=== PATIENT | male | born 1950 | race Caucasian/White ===

== ENCOUNTER → 2019-07-11 09:25 | Outpatient (BNVA) | payer MEDICARE, OTHER, SELFPAY | PROVIDERS: Family Provider Nurse Practitioner; PCP Nurse Practitioner; Visit Provider Nurse Practitioner | DX: Z11.59 Encounter for screening for other viral diseases (principal); Z13.6 Encounter for screening for cardiovascular disorders | CPT/HCPCS: 80053; 80061; 81003; 86705; 86706; 86803; 87340 ==

== ENCOUNTER → 2019-07-19 13:34 | Outpatient (BNVA) | payer MEDICARE, OTHER, SELFPAY | PROVIDERS: Family Provider Nurse Practitioner; PCP Nurse Practitioner; Visit Provider Nurse Practitioner Family | DX: R19.7 Diarrhea, unspecified (principal); H81.10 Benign paroxysmal vertigo, unspecified ear | CPT/HCPCS: 80053; 85025 ==

== ENCOUNTER → 2019-07-20 09:56 | Outpatient (BNVA) | payer MEDICARE, OTHER, SELFPAY | PROVIDERS: Family Provider Nurse Practitioner; PCP Nurse Practitioner; Visit Provider Nurse Practitioner Family | DX: R19.7 Diarrhea, unspecified (principal) | CPT/HCPCS: 87505 ==

== ENCOUNTER 2019-07-24 10:38 | Outpatient (CLI) | payer MEDICARE, OTHER, SELFPAY ==
--- NOTE | 2019-07-24 11:00 | US_ITS ---
WS: [id number] RENAL ULTRASOUND REASON FOR EXAM: RENAL [email or web address] 07/25/19@8:15AM. APPT TO FOLLOW TECHNIQUE: Grayscale and Doppler ultrasound examination of the kidneys. FINDINGS: Right kidney: Right kidney measures 7.6 cm x 4.5 cm x 4.9 cm. Renal atrophy similar to the previous e xam exposed February 02, 2016. Small cyst is unchanged also on the right kidney. Measures 2.23 x 1.5 4 x 2.10 cm. Left kidney: Left kidney measures 11.5 cm x 5.3 cm x 5.8 cm. The size and configuration unchanged sin ce previous exam. No hydronephrosis no stones. Cortex measured 1.98 cm. The aorta is normal measured 1.98 cm. The bladder is contracted but appears to show a nodular density in the wall. US/US renal BI* [id number] IMPRESSION: Comparisons were made to previous exam exposed 02/01/2017 Atrophic changes of the right kidney are again seen unchanged A small cyst of the right kidney is seen. The left kidney is normal. The bladder is contracted but appears to show a nodule along the wall of the bl adder.
== END 2019-07-24 10:39 | disposition home or self-care (01) ==
LOC: US 10:39
PROVIDERS: Family Provider Nurse Practitioner; PCP Nurse Practitioner; Visit Provider Urology
DX: N28.1 Cyst of kidney, acquired (principal); R33.9 Retention of urine, unspecified; N26.1 Atrophy of kidney (terminal)
CPT/HCPCS: 76770

== ENCOUNTER 2019-07-25 | Outpatient (CLI) | payer MEDICARE, OTHER, SELFPAY | END 2019-07-25 23:00 | disposition home or self-care (01) | LOC: RAD 01-07 13:46 | PROVIDERS: Family Provider Nurse Practitioner; PCP Nurse Practitioner; Visit Provider Nurse Practitioner Family | DX: R31.29 Other microscopic hematuria (principal) | CPT/HCPCS: 81001 ==

== ENCOUNTER → 2019-07-26 08:53 | Outpatient (BNVA) | payer MEDICARE, OTHER, SELFPAY | PROVIDERS: Family Provider Nurse Practitioner; PCP Nurse Practitioner; Visit Provider Nurse Practitioner Family | DX: A09 Infectious gastroenteritis and colitis, unspecified (principal); B96.23 Unspecified Shiga toxin-producing Escherichia coli [E. coli] [STEC] as the cause of diseases classified elsewhere; R42 Dizziness and giddiness; D69.6 Thrombocytopenia, unspecified | CPT/HCPCS: 80053; 83615; 85025 ==

== ENCOUNTER → 2020-01-29 08:33 | Outpatient (BNVA) | payer MEDICARE, OTHER, SELFPAY | PROVIDERS: Family Provider Nurse Practitioner; PCP Nurse Practitioner; Visit Provider Urology | DX: N31.9 Neuromuscular dysfunction of bladder, unspecified (principal); N26.1 Atrophy of kidney (terminal) | CPT/HCPCS: 81001 ==

== ENCOUNTER 2020-07-28 07:40 | Outpatient (CLI) | payer MEDICARE, OTHER, SELFPAY ==
--- NOTE | 2020-07-28 08:00 | US_ITS ---
NOTE: Report was unsigned for reason: Order was edited. Original Signature date and time was: 07/28/20 13:09 WS: [id number] ULTRASOUND RENAL TECHNIQUE: Ultrasound examination of both kidneys. CLINICAL INFORMATION: RENAL ATROPHY COMPARISON: July 24, 2019 FINDINGS: RIGHT: Atrophic right kidney Right renal cyst measuring 1.8 x 1.1 cm Echogenicity: Normal. Cortical thickness: cm; Normal. Hydronephrosis: None. Perinephric fluid: None. Right kidney measures: 9.2 cm x 5.0 cm x 5.1 cm. LEFT: Left kidney is normal in size and appearance. Echogenicity: Normal. Cortical thickness: cm; Normal. Hydronephrosis: None. Perinephric fluid: None. Left kidney measures: 12.7 cm x 5.7 cm x 5.5 cm. Normal visualized aorta. Poor bladder emptying with postvoid residual measured 321 cc [facility] US/US renal BI* [id number] IMPRESSION: 1. Right renal cortical atrophy. 2. No hydronephrosis in either kidney. 3. Postvoid residual measuring 321 cc
== END 2020-07-28 07:41 | disposition home or self-care (01) ==
LOC: RAD 07:44
PROVIDERS: PCP Nurse Practitioner; Visit Provider Urology
DX: N26.1 Atrophy of kidney (terminal) (principal)
CPT/HCPCS: 76770

== ENCOUNTER → 2021-01-15 11:22 | Outpatient (BNVA) | payer MEDICARE, OTHER, SELFPAY | PROVIDERS: PCP Nurse Practitioner; Visit Provider Nurse Practitioner | DX: R50.9 Fever, unspecified (principal) | CPT/HCPCS: 71046; 80053; 85025 ==

== ENCOUNTER → 2021-01-28 09:08 | Outpatient (BNVA) | payer MEDICARE, OTHER, SELFPAY | PROVIDERS: PCP Nurse Practitioner; Visit Provider Urology | DX: N31.9 Neuromuscular dysfunction of bladder, unspecified (principal); Z87.442 Personal history of urinary calculi; Z87.440 Personal history of urinary (tract) infections; N26.1 Atrophy of kidney (terminal) | CPT/HCPCS: 81003 ==

== ENCOUNTER → 2021-06-29 15:25 | Outpatient (BNVA) | payer MEDICARE, OTHER, SELFPAY | PROVIDERS: PCP Nurse Practitioner; Visit Provider Nurse Practitioner | DX: R20.0 Anesthesia of skin (principal); R20.2 Paresthesia of skin; M25.551 Pain in right hip; M16.11 Unilateral primary osteoarthritis, right hip | CPT/HCPCS: 73502 ==

== ENCOUNTER → 2021-09-30 11:26 | Outpatient (BNVA) | payer MEDICARE, OTHER, SELFPAY | PROVIDERS: PCP Nurse Practitioner; Visit Provider Nurse Practitioner | DX: I48.91 Unspecified atrial fibrillation (principal) | CPT/HCPCS: 80053; 84443; 85025 ==

== ENCOUNTER → 2021-10-30 08:30 | Outpatient (BNVA) | payer MEDICARE, OTHER, SELFPAY | PROVIDERS: PCP Nurse Practitioner; Visit Provider Nurse Practitioner | DX: M51.37 Other intervertebral disc degeneration, lumbosacral region (principal); I48.91 Unspecified atrial fibrillation; N40.0 Benign prostatic hyperplasia without lower urinary tract symptoms; Z12.5 Encounter for screening for malignant neoplasm of prostate | CPT/HCPCS: G0103 ==

== ENCOUNTER 2021-11-04 06:00 | Outpatient (RCR) | payer MEDICARE, OTHER, SELFPAY | END 2021-11-19 23:59 | disposition home or self-care (01) | LOC: TPT 06:00 | PROVIDERS: PCP Nurse Practitioner; Referring Provider Nurse Practitioner; Visit Provider Nurse Practitioner | DX: M51.36 Other intervertebral disc degeneration, lumbar region (principal) | CPT/HCPCS: 97110; 97161 ==

== ENCOUNTER 2021-11-20 06:00 | Outpatient (RCR) | payer MEDICARE, OTHER, SELFPAY | END 2021-12-20 23:59 | disposition home or self-care (01) | LOC: TPT 06:00 | PROVIDERS: PCP Nurse Practitioner; Referring Provider Nurse Practitioner; Visit Provider Nurse Practitioner | DX: M51.37 Other intervertebral disc degeneration, lumbosacral region (principal) | CPT/HCPCS: 97110 ==

== ENCOUNTER 2022-01-28 09:20 | Outpatient (CLI) | payer MEDICARE, OTHER, SELFPAY ==
--- NOTE | 2022-01-28 09:46 | XR_ITS ---
WS: [id number] KUB, AP view, 01/28/2022 Clinical Data: Z87.442 - Personal history of urinary calculi Comparison: None. Findings: No abnormal intraabdominal masses are seen. There is no dilatated small bowel or evidence of obstruct ion. There are faint right upper quadrant calcifications representing gallstones. There is vertebroplasty cement in L2. There is air in the small bowel in the upper abdomen which is not dilated. There is a m oderate amount of fecal material throughout the colon. XR/XR KUB [id number] Impression: Moderate generalized ileus.
== END 2022-01-28 09:21 | disposition home or self-care (01) ==
LOC: RAD 09:21
PROVIDERS: PCP Nurse Practitioner; Visit Provider Urology
DX: N31.9 Neuromuscular dysfunction of bladder, unspecified (principal); N26.1 Atrophy of kidney (terminal); Z87.440 Personal history of urinary (tract) infections; Z87.442 Personal history of urinary calculi
CPT/HCPCS: 51798; 74018; 81003; 99213

== ENCOUNTER → 2022-03-11 09:50 | Outpatient (BNVA) | payer MEDICARE, OTHER, SELFPAY | PROVIDERS: PCP Nurse Practitioner Family; Visit Provider Nurse Practitioner Family | DX: M25.552 Pain in left hip (principal); Z13.6 Encounter for screening for cardiovascular disorders; Z12.5 Encounter for screening for malignant neoplasm of prostate | CPT/HCPCS: 73502; 80053; 80061; G0103 ==

== ENCOUNTER 2022-07-29 08:12 | Outpatient (CLI) | payer MEDICARE, OTHER, SELFPAY ==
--- NOTE | 2022-07-29 08:45 | US_ITS ---
WS: [id number] RENAL ULTRASOUND HISTORY: Kidney Stone COMPARISON: 07/28/2020 TECHNIQUE: 2-D and color Doppler imaging of the kidney submitted. Right kidney: 9.3 cm x 5.0 cm x 4.0 cm. Low normal size kidney. Increased echogenicity. Focal area of marked cortical thinning in the central kidney. No hydronephrosis or solid mass identified. Left kidney: 12.0 cm x 5.9 cm x 4.9 cm. Normal size with mild increased echogenicity. No cortical thinning or scarring. No obstruction. Aorta: Normal. Urinary Bladder: Well-distended bladder. No filling defects. Mildly heterogeneous prostate measures 4.7 x 5.2 x 3.5 cm. US/US renal BI* [id number] IMPRESSION: 1. Low normal size RIGHT kidney with cortical thinning and scarring and eviden ce for chronic medical renal disease. The focal scar in the mid kidney with los s of cortex is new since 2020. 2. Normal LEFT kidney.
== END 2022-07-29 08:13 | disposition home or self-care (01) ==
LOC: RAD 08:16
PROVIDERS: PCP Nurse Practitioner Family; Visit Provider Urology
DX: Z87.442 Personal history of urinary calculi (principal); Z87.440 Personal history of urinary (tract) infections; N31.9 Neuromuscular dysfunction of bladder, unspecified; N26.1 Atrophy of kidney (terminal)
CPT/HCPCS: 51798; 76770; 81003; 99213

== ENCOUNTER → 2022-12-01 13:50 | Outpatient (BNVA) | payer MEDICARE, OTHER, SELFPAY | PROVIDERS: PCP Nurse Practitioner Family; Referring Provider Nurse Practitioner Family; Visit Provider Dermatology | DX: L57.0 Actinic keratosis (principal); B35.6 Tinea cruris; L81.4 Other melanin hyperpigmentation; D69.2 Other nonthrombocytopenic purpura | CPT/HCPCS: 99204 ==

== ENCOUNTER → 2022-12-23 10:18 | Outpatient (BNVA) | payer MEDICARE, OTHER, SELFPAY | PROVIDERS: PCP Nurse Practitioner Family; Visit Provider Nurse Practitioner Family | DX: I48.91 Unspecified atrial fibrillation (principal); N40.0 Benign prostatic hyperplasia without lower urinary tract symptoms; M51.37 Other intervertebral disc degeneration, lumbosacral region | CPT/HCPCS: 80053; 80061 ==

== ENCOUNTER 2023-04-22 14:15 | Outpatient (CLI) | payer MEDICARE, OTHER, SELFPAY ==
--- NOTE | 2023-04-22 14:21 | XR_ITS ---
WS: [id number] Left hip, 2 views, 04/22/2023 Clinical Data: left hip pain Comparison: Left hip, 03/11/2022 Findings: No fractures or dislocations are seen. The left hip shows no erosion, sclerosis, narrowing or fragmen tation of the left femoral head. There is a small acetabular lip. The soft tissues are not remarkable . The adjacent pelvis is normal. Impression: Minimal osteoarthritis of left hip. Tonnis classification: grade 1: sclerosis of femoral head and acetabulum or slight joint space narrow ing or slight lipping at joint margins
--- NOTE | 2023-04-22 14:21 | XR_ITS ---
WS: [id number] Right shoulder, 2 views Clinical Data: right shoulder pain Comparison: None. Findings: No fractures or dislocations are seen. The AC joint is normal. The adjacent right clavicle, right sca pula and ribs are normal. The soft tissues are unremarkable. Impression: Negative right shoulder.
== END 2023-04-22 14:16 | disposition home or self-care (01) ==
LOC: RAD 14:18
PROVIDERS: PCP Nurse Practitioner Family; Visit Provider Nurse Practitioner Family
DX: M25.511 Pain in right shoulder; M16.12 Unilateral primary osteoarthritis, left hip
CPT/HCPCS: 73030; 73502

== ENCOUNTER → 2023-09-13 10:03 | Outpatient (BNVA) | payer MEDICARE, OTHER, SELFPAY | PROVIDERS: PCP Nurse Practitioner Family; Visit Provider Nurse Practitioner Family | DX: I48.91 Unspecified atrial fibrillation (principal); Z12.5 Encounter for screening for malignant neoplasm of prostate; N40.0 Benign prostatic hyperplasia without lower urinary tract symptoms; K21.9 Gastro-esophageal reflux disease without esophagitis | CPT/HCPCS: 80053; 84443; 85025; G0103 ==

== ENCOUNTER 2023-12-13 09:47 | Outpatient (CLI) | payer MEDICARE, OTHER, SELFPAY ==
--- NOTE | 2023-12-13 09:50 | CT_ITS ---
WS: [id number] CT CHEST ANGIOGRAPHY WITH REFORMATS HISTORY: PAROXYSMAL ATRIAL FIBRILLATION TECHNIQUE: Contiguous axial images are obtained through the chest during arterial injection of intrav enous contrast. Images are reconstructed to evaluate the pulmonary arteries. MIP imaging also reviewe d. All CT scans at [facility] use at least one of these dose optimization techniques: automat ed exposure control; mA and/or kV adjustment per patient size (includes targeted exams where dose is matched to clinical indication); or iterative reconstruction. CONTRAST: Omnipaque 350; 100 mL IV. DLP: 358.18 mGy.cm COMPARISON: None available. Good contrast opacification of the pulmonary artery. Normal size pulmonary artery. No pulmonary embol ism is identified centrally through the lobar and majority of the segmental branches. Mild atheroscle rosis aorta. No aneurysmal dilatation of the aorta. Moderate enlargement of the LEFT ventricle. No RI GHT heart strain. No pericardial or pleural effusions. No mediastinal or hilar adenopathy. Mild dilatation of the LEFT hemidiaphragm with compressive atelectasis. 4 mm noncalcified nodule RIGH T upper lobe, image 19 of series 5. Mild tricuspid regurgitation into the hepatic veins. Cholelithiasis without acute cholecystitis. Visu alized adrenal glands are normal. Atherosclerotic plaque throughout the splenic artery. There is a we ll-circumscribed mass incompletely visualized with a maximum diameter of 2.1 cm in the upper LEFT abd omen just posterior to the greater curvature of the stomach and inseparable from the pancreas. This m ass was also present on the prior CT thoracic spine of 05/25/2018 with no change in size. Thoracic scoliosis. Healed left-sided rib fractures. CT/CT angio chest PE protcl [id number] IMPRESSION: 1. No pulmonary embolism. Normal size pulmonary artery. 2. Mild LEFT ventricle enlargement. 3. Mild elevated LEFT diaphragm. 4. Mild tricuspid regurgitation into the hepatic veins. 5. Cholelithiasis without acute cholecystitis. 6. Well-circumscribed mass incompletely visualized in the upper LEFT abdomen. This mass was also present on a prior CT from 05/25/2018 without increase in size . 7. 4 mm noncalcified pulmonary nodule RIGHT upper lobe. Recommend follow-up [facility] CT in 6 months.
[2023-12-13] MEDS: iohexol 350 mg/mL 500 mL Btl (per mL) IV (10:32)
== END 2023-12-13 09:48 | disposition home or self-care (01) ==
LOC: RAD 09:48
PROVIDERS: PCP Nurse Practitioner Family; Visit Provider Internal Medicine Cardiovascular Disease
DX: I48.0 Paroxysmal atrial fibrillation (principal); I36.1 Nonrheumatic tricuspid (valve) insufficiency; I51.7 Cardiomegaly; J98.11 Atelectasis; R91.1 Solitary pulmonary nodule; K80.20 Calculus of gallbladder without cholecystitis without obstruction; R19.00 Intra-abdominal and pelvic swelling, mass and lump, unspecified site; M41.84 Other forms of scoliosis, thoracic region
CPT/HCPCS: 71275; Q9967

== ENCOUNTER → 2024-01-09 15:47 | Outpatient (BNVA) | payer MEDICARE, OTHER, SELFPAY | PROVIDERS: PCP Nurse Practitioner Family; Visit Provider Nurse Practitioner Family | DX: I48.91 Unspecified atrial fibrillation (principal); R07.89 Other chest pain; M51.37 Other intervertebral disc degeneration, lumbosacral region | CPT/HCPCS: 80053; 80061; 85025 ==

== ENCOUNTER 2024-01-14 13:47 | Emergency (ER) | payer MEDICARE, OTHER, SELFPAY ==
[2024-01-14 13:56] VITALS: BP 100/63; PULSE 60; RESP 16; TEMP 36.4; O2SAT 98; BMI 28.7
[2024-01-14 14:27] LABS: Basophils % 0.5 %; Eosinophils # 0.2 10^3/uL (0.0-0.8); Eosinophils % 3.4 %; Hematocrit 43.1 % (37-53); Lymphocytes # 1.3 10^3/uL (0.8-4.8); Lymphocytes % 23.2 %; Mean Corpuscular HGB Conc 32.7 g/dL (30-55); Mean Corpuscular Hemoglobin 31.9 pg (27-33); Mean Corpuscular Volume 97.5 fl (82-101); Mean Platelet Volume 8.2 fL (7.4-10.4); Monocytes # 0.5 10^3/uL (0.2-0.9); Monocytes % 8.6 %; Neutrophils # 3.55 10^3/uL (1.8-7.7); Neutrophils % 63.9 %; Nucleated Red Blood Cells % 0 %; Platelet Count 161 10^3/cmm (157-399); Red Blood Count 4.42 10^6/uL (3.85-5.65); Red Cell Distribution Width 12.6 % (12.1-15.1); White Blood Count 5.56 10^3/uL (3.29-11.43)
[2024-01-14 14:37] LABS: INR 1.27 (0.8-1.2)
[2024-01-14 14:38] LABS: Partial Thromboplastin Time 31.5 SECONDS (23.9-36.7)
[2024-01-14 14:42] LABS: Alanine Aminotransferase 14 U/L (0-41); Albumin Level 4.1 g/dL (3.5-5.2); Alkaline Phosphatase 55 U/L (40-130); Anion Gap 13.4 (5-19); Aspartate Amino Transferase 16 U/L (0-40); Blood Urea Nitrogen 24 mg/dL (8-23); Calcium 9.1 mg/dL (8.5-10.5); Carbon Dioxide 26 mmol/L (22-29); Chloride 104 mmol/L (98-107); Creatinine Clr Calc Pharmacy 74.5256; Globulin 2.7 g/dL (1.3-4.6); Glucose 119 mg/dL (65-115); Osmolality Calculated 293 mOsm/kg (285-295); Potassium 4.4 mmol/L (3.5-5.1); Sodium 139 mmol/L (136-145); Total Bilirubin 0.5 mg/dL (0.15-1.2); Total Protein 6.8 g/dL (6.6-8.7)
[2024-01-14 15:15] LABS: Charge for UA Resulting for Rev
[2024-01-14 15:17] LABS: Bilirubin Urine Negative (Negative); Blood Urine 3+ (Negative); Glucose Urine UA Negative (Normal); Ketones Urine Negative (Negative); Leukocyte Esterase Urine Trace (Negative); Nitrate Urine Negative (Negative); Protein Urine Trace (Negative); Specific Gravity, Urine 1.015 (1.005-1.030); Urine Appearance Cloudy (CLEAR)
[2024-01-14 15:22] LABS: Bacteria Urine None Seen /hpf; Hyaline Casts Urine 0-4 /lpf; RBC Urine >100 /hpf (0-2)
[2024-01-14 15:24] LABS: Urine Color Orange (Yellow)
[2024-01-14 15:25] LABS: Add Urine Culture? Yes
--- NOTE | 2024-01-14 15:29 | CTR_ITS ---
PROCEDURE INFORMATION: Exam: CT Abdomen And Pelvis With Contrast Exam date and time: 01/14/2024 4:28 PM Age: 73 years old Clinical indication: Other: Hematuria TECHNIQUE: Imaging protocol: Computed tomography of the abdomen and pelvis with contrast. Radiation optimization: All CT scans at this facility use at least one of these dose optimization techniques: automated exposure control; mA and/or kV adjustment per patient size (includes targeted exams where dose is matched to clinical indication); or iterative reconstruction. Contrast material: OMNI 350; Contrast volume: 80 ml; Contrast route: INTRAVENOUS (IV); COMPARISON: CR XR hip LT 2-3V wo/w pel* [id number] 04/22/2023 2:34 PM RADIATION DOSE METRICS: Total DLP (mGy-cm): 858.18 FINDINGS: Lungs: Subsegmental atelectasis in the left lower lobe. Mild atelectasis in the right lower lobe. Liver: Normal. No mass. Gallbladder and biliary ducts: Cholelithiasis. Pancreas: Diffuse fatty atrophy of the pancreas. No ductal dilatation. Spleen: Normal. No splenomegaly. Adrenal glands: Normal. No mass. Kidneys and ureters: Focal cortical scarring in the upper pole of the right kidney. Additional smaller areas of scarring inferiorly. No hydronephrosis. No definite renal or ureteral calculi. Stomach and bowel: Colonic diverticulosis most pronounced along the sigmoid colon. Appendix: No evidence of appendicitis. Intraperitoneal space: Unremarkable. No free air. No significant fluid collection. Vasculature: Unremarkable. No abdominal aortic aneurysm. Mild atherosclerotic aortic calcifications. Lymph nodes: Unremarkable. No enlarged lymph nodes. Urinary bladder: Mild mural thickening along the posterior aspect of the urinary bladder with likely developing diverticula bilaterally. Reproductive: Unremarkable as visualized. Bones/joints: Remote compression fracture at L2 status post vertebral augmentation. Degenerative changes of the visualized spine. No acute fracture. Soft tissues: Small fat containing left inguinal hernia. Small fat containing umbilical hernia. CT/CT abdomen pelvis w con* [id number] IMPRESSION: 1. Mild thickening of the posterior urinary bladder wall is nonspecific. No definite abnormal mass. However, developing neoplasm and/or acute cystitis not entirely excluded. Consider follow-up ultrasound and/or CT urogram in 6-12 weeks to document stability. 2. No calcified nephrolithiasis or urinary tract calculi. 3. Areas of focal cortical scarring in the right kidney may be from prior infection/inflammation. 4. Likely developing bladder diverticula bilaterally. 5. Additional ancillary findings as above.
[2024-01-14 15:59] VITALS: BP 107/71; PULSE 76; RESP 16; O2SAT 97
--- NOTE | 2024-01-14 16:06 | ED_ITS ---
HPI - Male Genitourinary 2 General: Chief complaint: Abdominal Pain Stated complaint: blood in urine Time Seen by Provider: 01/14/24 15:28 History of Present Illness: 73-year-old man with a history of A-fib not on any blood thinners, right renal atrophy, kidney stones, neurogenic bladder who presents to the emergency room with bilateral flank pain but worse on the right and today with hematuria. He says he is no stranger to urinary tract infections. He has not had a fever. No nausea or vomiting. No altered mental status. No focal motor deficits. No chest pain. No shortness of breath. Related Data Home Medications Medication Instructions Recorded Confirmed ascorbic acid (vitamin C) PO DAILY 06/20/19 01/09/24 glucosamine-chondroitin 250 mg-200 1 tab PO DAILY 06/20/19 01/09/24 mg tablet (Osteo Bi-Flex) flunisolide 25 mcg (0.025 %) nasal 2 spray intranasal .prn 01/29/20 01/09/24 spray Previous Rx's Medication Instructions Recorded methenamine hippurate 1 gram tablet 1 g PO BID #180 tabs 07/29/22 triamcinolone acetonide 0.5 % 1 applic topical TID #15 grams 10/13/22 topical cream tramadol 50 mg tablet 50 mg PO TID PRN pain 10 days #30 09/13/23 tabs alfuzosin 10 mg tablet,extended See Rx Instructions .Route 01/09/24 release 24 hr .COMPLEX #90 tabs apixaban 5 mg tablet (Eliquis) 5 mg PO BID 90 days #180 tabs 01/09/24 clotrimazole-betamethasone 1 1 applic topical BID 2 weeks #45 01/09/24 %-0.05 % topical cream grams famotidine 20 mg tablet (Pepcid) 20 mg PO DAILY #90 tabs 01/09/24 flecainide 150 mg tablet 150 mg PO Q12H 90 days #180 tabs 01/09/24 fluconazole 100 mg tablet 100 mg PO DAILY 14 days #14 tabs 01/09/24 metoprolol tartrate 50 mg tablet 50 mg PO BID 90 days #180 tabs 01/09/24 cefdinir 300 mg capsule 300 mg PO BID 10 days #20 caps 01/14/24 tamsulosin 0.4 mg capsule (Flomax) 0.4 mg PO DAILY #30 caps 01/14/24 Allergies Allergy/AdvReac Type Severity Reaction Status Date / Time No Known Allergies Allergy Verified 01/14/24 13:59 Review of Systems 2 Narrative: Constitutional symptoms: Negative except as documented in HPI. Skin symptoms: Negative except as documented in HPI. Eye symptoms: Negative except as documented in HPI. ENMT symptoms: Negative except as documented in HPI. Respiratory symptoms: Negative except as documented in HPI. Cardiovascular symptoms: Negative except as documented in HPI. Gastrointestinal symptoms: Negative except as documented in HPI. Genitourinary symptoms: Negative except as documented in HPI. Musculoskeletal symptoms: Negative except as documented in HPI. Neurologic symptoms: Negative except as documented in HPI. Psychiatric symptoms: Negative except as documented in HPI. Endocrine symptoms: Negative except as documented in HPI. PFSH ED 2 PFSH: Medical History DDD (degenerative disc disease), lumbosacral Osteoarthritis of hip Atrial fibrillation Thrombocytopenia Right renal atrophy History of kidney stones Neurogenic bladder Benign prostatic hyperplasia with lower urinary tract symptoms Arthritis Surgical History History of cataract extraction Bilateral H/O vasectomy S/P hernia repair Left S/P knee replacement Left Family History Mother Lung disease Brother Cancer Father , at age 70 No problems noted. Social History Smoking and tobacco/nicotine status: never used tobacco/nicotine Second hand smoke exposure: No Alcohol intake: never Substance/Drug Use: never Caregiver/support person: No Lives independently: Yes Household members: spouse Housing: Manufactured/Mobile home Marital status: Number of children: 2 Highest education level completed: High School Graduate service: Yes (28 years) status: Retired branch: [employer] Assignments: Outside [facility] ([employer]) and Deployed Countries/Dates of Deployments: [facility] number of deployments: 8 Current occupational status: retired Do you think of yourself as: Straight/Heterosexual Current gender identity: Male Physical Exam 2 Narrative: EXAM NARRATIVE: General: Alert, no acute distress. Skin: Warm, dry. Head: Normocephalic, atraumatic. Neck: Supple, trachea midline. Eye: Extraocular movements are intact. Ears, nose, mouth and throat: mucosa moist. Cardiovascular: Regular, Normal peripheral perfusion. Respiratory: Lungs are clear to auscultation, respirations are non-labored, breath sounds are equal, Symmetrical chest wall expansion. Gastrointestinal: Soft, Nontender, Non distended Musculoskeletal: Normal ROM, no deformity. Neurological: Alert and oriented, No focal neurological deficit observed. Psychiatric: Cooperative, appropriate mood & affect. Course 2 Vital Signs: Vital signs: Vital Signs Temperature 97.5 F L 01/14/24 13:56 Pulse Rate 71 01/14/24 17:00 Respiratory Rate 17 01/14/24 17:00 Blood Pressure 113/66 01/14/24 17:00 Pulse Oximetry 96 01/14/24 17:00 Oxygen Delivery Me thod Room Air 01/14/24 17:00 MDM - Male Medical Decision Making Medical decision making: Differential diagnosis including but not limited to and based on the above HPI, review of systems and physical exam: Ureterolithiasis. Urinary tract infection. Appendicitis. Cholecystis. Musculoskeletal / back pain. Pyelonephritis Orders placed to evaluate differential diagnosis based on the above differential, HPI and physical exam Lab Review: Laboratory results were reviewed and interpreted by myself the emergency room physician. No leukocytosis. No anemia. BUN is slightly elevated at 24 with creatinine is normal at 1. Urinalysis shows definite hematuria with a few whites which might still indicate infection.. CT of the abdomen pelvis with contrast: Mild thickening of the posterior urinary bladder wall which is nonspecific. Could be a mass. But could also be cystitis. I suggest follow-up urogram. No kidney stones ureteral stones or bladder stones. Some cortical scarring of the right kidney. This was reviewed and interpreted by myself the emergency room physician. I also reviewed the radiology report. I reviewed the patient's medical record. Reexamination: Patient remained stable. No increased work of breathing. No altered mental status. No focal motor deficits. Patient tells me that he has chronic urinary retention and has a baseline of about 600 cc. I discussed that this could be infection but also could be malignancy. He depresses understanding he will go see urology for cystoscopy or further other workup. Assessment and plan: Hematuria Chronic urinary retention Urinary tract infection Dehydration ?IV Rocephin and IV fluids in the emergency room - Discharged home - Discussed findings and plan with patient. Answered any questions. - All laboratory values were reviewed and interpreted personally by myself, the ER physician - All imaging was reviewed and interpreted personally by myself, the ER physician. - Evaluation and treatment of this problem were appropriate in the emergency setting Lab Data 01/14/24 14:20 01/14/24 14:20 Radiology Impressions Abdomen/Pelvis CT 01/14/24 15:29 IMPRESSION: 1. Mild thickening of the posterior urinary bladder wall is nonspecific. No definite abnormal mass. However, developing neoplasm and/or acute cystitis not entirely excluded. Consider follow-up ultrasound and/or CT urogram in 6-12 weeks to document stability. 2. No calcified nephrolithiasis or urinary tract calculi. 3. Areas of focal cortical scarring in the right kidney may be from prior infection/inflammation. 4. Likely developing bladder diverticula bilaterally. 5. Additional ancillary findings as above. Laboratory Results WBC 5.56 10^3/uL (3.29-11.43) 01/14/24 14:20 RBC 4.42 10^6/uL (3.85-5.65) 01/14/24 14:20 Hgb 14.10 g/dL (11.27-16.99) 01/14/24 14:20 Hct 43.1 % (37-53) 01/14/24 14:20 MCV 97.5 fl (82-101) 01/14/24 14:20 MCH 31.9 pg (27-33) 01/14/24 14:20 MCHC 32.7 g/dL (30-55) 01/14/24 14:20 RDW 12.6 % (12.1-15.1) 01/14/24 14:20 Plt Count 161 10^3/cmm (157-399) 01/14/24 14:20 MPV 8.2 fL (7.4-10.4) 01/14/24 14:20 Neut % (Auto) 63.9 % 01/14/24 14:20 Lymph % (Auto) 23.2 % 01/14/24 14:20 [place] % (Auto) 8.6 % 01/14/24 14:20 Eos % (Auto) 3.4 % 01/14/24 14:20 Baso % (Auto) 0.5 % 01/14/24 14:20 Neut # (Auto) 3.55 10^3/uL (1.8-7.7) 01/14/24 14:20 Lymph # (Auto) 1.3 10^3/uL (0.8-4.8) 01/14/24 14:20 [place] # (Auto) 0.5 10^3/uL (0.2-0.9) 01/14/24 14:20 Eos # (Auto) 0.2 10^3/uL (0.0-0.8) 01/14/24 14:20 Baso # (Auto) 0.0 10^3/uL (0.0-0.1) 01/14/24 14:20 Nucleated RBC % (auto) 0 % 01/14/24 14:20 Nucleated RBCs # 0.0 /100WBC 01/14/24 14:20 PT 16.30 SECONDS (12.1-14.9) H 01/14/24 14:20 INR 1.27 (0.8-1.2) H 01/14/24 14:20 APTT 31.5 SECONDS (23.9-36.7) 01/14/24 14:20 Sodium 139 mmol/L (136-145) 01/14/24 14:20 Potassium 4.4 mmol/L (3.5-5.1) 01/14/24 14:20 Chloride 104 mmol/L (98-107) 01/14/24 14:20 Carbon Dioxide 26 mmol/L (22-29) 01/14/24 14:20 Anion Gap 13.4 (5-19) 01/14/24 14:20 BUN 24 mg/dL (8-23) H 01/14/24 14:20 Creatinine 1.0 mg/dL (0.7-1.2) 01/14/24 14:20 GFR Calculation Not Reportable 01/14/24 14:20 Glucose 119 mg/dL (65-115) H 01/14/24 14:20 Calculated Osmolality 293 mOsm/kg (285-295) 01/14/24 14:20 Calcium 9.1 mg/dL (8.5-10.5) 01/14/24 14:20 Total Bilirubin 0.5 mg/dL (0.15-1.2) 01/14/24 14:20 AST 16 U/L (0-40) 01/14/24 14:20 ALT 14 U/L (0-41) 01/14/24 14:20 Alkaline Phosphatase 55 U/L (40-130) 01/14/24 14:20 Total Protein 6.8 g/dL (6.6-8.7) 01/14/24 14:20 Albumin 4.1 g/dL (3.5-5.2) 01/14/24 14:20 Globulin 2.7 g/dL (1.3-4.6) 01/14/24 14:20 Urine Color [place] (Yellow) A 01/14/24 15:09 Urine Appearance Cloudy (CLEAR) A 01/14/24 15:09 Urine pH 6.0 (5-7) 01/14/24 15:09 Ur Specific [place] 1.015 (1.005-1.030) 01/14/24 15:09 Urine Protein Trace (Negative) A 01/14/24 15:09 Urine Glucose (UA) Negative (Normal) 01/14/24 15:09 Urine Ketones Negative (Negative) 01/14/24 15:09 Urine Blood 3+ (Negative) A 01/14/24 15:09 Urine Nitrate Negative (Negative) 01/14/24 15:09 Urine Bilirubin Negative (Negative) 01/14/24 15:09 Urine Urobilinogen 1.0 mg/dL (Negative) 01/14/24 15:09 Ur Leukocyte Esterase Trace (Negative) A 01/14/24 15:09 Urine RBC >100 /hpf (0-2) H 01/14/24 15:09 Urine WBC 6-10 /hpf (0-5) 01/14/24 15:09 Ur Squamous Epith Cells 6-10 /hpf (0-5) 01/14/24 15:09 Amorphous Sediment Not Reportable 01/14/24 15:09 Urine Bacteria None seen /hpf (NONE) 01/14/24 15:09 Hyaline Casts 0-4 /lpf H 01/14/24 15:09 All radiology interpretation(s) finalized by discharge Discharge Plan Discharge Patient Disposition: Home Clinical Impression: Urinary tract infection, History of urinary retention, Hematuria Condition: Stable Prescriptions: New Flomax 0.4 mg capsule 0.4 mg PO DAILY Qty: 30 0RF cefdinir 300 mg capsule 300 mg PO BID 10 Days Qty: 20 0RF No Action ascorbic acid (vitamin C) PO DAILY glucosamine-chondroitin [Osteo Bi-Flex] 250-200 mg tablet 1 tab PO DAILY flunisolide 25 mcg (0.025 %) spray,non-aerosol 2 spray INTRANASAL .prn tramadol 50 mg tablet 50 mg PO TID PRN (Reason: pain) 10 Days Qty: 30 0RF alfuzosin 10 mg tablet extended release 24 hr See Rx Instructions .ROUTE .COMPLEX Qty: 90 1RF Dose Instruction: TAKE 1 TABLET AT BEDTIME Rx Instructions: TAKE 1 TABLET AT BEDTIME Eliquis 5 mg tablet 5 mg PO BID 90 Days Qty: 180 1RF famotidine [Pepcid] 20 mg tablet 20 mg PO DAILY Qty: 90 1RF flecainide 150 mg tablet 150 mg PO Q12H 90 Days Qty: 180 1RF metoprolol tartrate 50 mg tablet 50 mg PO BID 90 Days Qty: 180 1RF fluconazole 100 mg tablet 100 mg PO DAILY 14 Days Qty: 14 0RF clotrimazole-betamethasone 1-0.05 % cream 1 applic TOPICAL BID 14 Days Qty: 45 2RF methenamine hippurate 1 gram tablet 1 g PO BID Qty: 180 3RF Rx Instructions: With 1 g vitamin C each dose triamcinolone acetonide 0.5 % cream 1 applic topical TID Qty: 15 1RF Discharge Orders: Discharge ED (Routine); Ordered 01/14/24 Ordered By: Sonia Marie Referrals: Rodolfo Mora [Referring] - 4-7 days (Please call for an appointment) Marjorie Esteves NP [Primary Care Provider] - Discharge Diet: Usual diet Discharge Activity: Resume usual activity Patient Instructions: Urinary Tract Infection in Men (ED), Hematuria (ED) Activity Restrictions/Additional Instructions: With you having hematuria and some abnormalities on the CT scan you need to have follow-up with urology soon for further evaluation to rule out any kind of malignancy. Thank you for choosing [facility] for your healthcare needs today. Please realize this is an emergency room and that we are providing you with a medical screening exam and this may not be complete and all inclusive of all the testing and or work up that you may need to determine your ailment or severity of your illness. You have been screened and evaluated and felt safe for discharge. Health conditions do change or evolve sometimes and as such it is important that you follow up with your Primary Doctor to be re checked, 3-5 days is a general good time frame for follow up. You are always welcome to return to the ED for re assessment if your symptoms are worsening or you have new concerns Coding Level of Care Code ED [employer] Manager for Violette Rodriguez
[2024-01-14] MEDS: sodium chloride 0.9% 1,000 ML 999 ML IV (16:26)
[2024-01-14] MEDS: iohexol 350 mg/mL 500 mL Btl (per mL) IV (16:33)
[2024-01-14 17:00] VITALS: BP 113/66; PULSE 71; RESP 17; O2SAT 96
--- NOTE | 2024-01-14 17:16 | PC.NURSE ---
post void residual 622. provider notified. Pt reports he has had urinary retention his entire life, bladder usually retains 600ml and he has never had a zamudio or caths. pt refused a cath to empty bladder.
[2024-01-14 18:00] VITALS: BP 134/76; PULSE 78; RESP 17; O2SAT 97
== END 2024-01-14 18:00 | disposition home or self-care (01) ==
PROVIDERS: Physician Assistant; Emergency Provider Emergency Medicine; PCP Nurse Practitioner Family
DX: N39.0 Urinary tract infection, site not specified (principal); R31.9 Hematuria, unspecified; Z79.01 Long term (current) use of anticoagulants
CPT/HCPCS: 36415; 51798; 74177; 80053; 81003; 81015; 85025; 85610; 85730; 87086; 99285; J7030; Q9967

== ENCOUNTER → 2024-04-25 12:56 | Outpatient (BNVA) | payer MEDICARE, OTHER, SELFPAY | PROVIDERS: PCP Nurse Practitioner Family; Visit Provider Nurse Practitioner Family | DX: N32.89 Other specified disorders of bladder (principal); R25.1 Tremor, unspecified; R26.81 Unsteadiness on feet; E55.9 Vitamin D deficiency, unspecified; R73.9 Hyperglycemia, unspecified | CPT/HCPCS: 80053; 82306; 82607; 82746; 83036; 83735; 84443; 85025; 86592 ==

== ENCOUNTER 2024-05-03 13:18 | Outpatient (CLI) | payer MEDICARE, OTHER, SELFPAY ==
--- NOTE | 2024-05-03 13:45 | US_ITS ---
WS: [id number] URINARY BLADDER ULTRASOUND HISTORY: N32.89 - Other specified disorders of bladder COMPARISON: 01/14/2024 CT Urinary bladder is overly distended. There is soft tissue mass encroaching into the bladder from the prostate gland. Prostate is enlarged and heterogeneous. There is a hypoechoic focus within the urinar y bladder without increased vascularity. Closely associated with the prostate gland. I suspect this m ay be an area of hematoma adjacent to an enlarged prostate. Prostate gland on the prior recent CT did not extend into the bladder. Bladder Wall Thickness: 0.4 cm. Bladder Prevoid: 14.3 cm x 7.6 cm x 7.5 cm. Prevoid volume: 427 ml. Bladder Postvoid: 12.9 cm x 7.8 cm x 7.9 cm. Postvoid volume: 415.4 ml. US/US bladder [id number] IMPRESSION: 1. [place] distended urinary bladder is probably related to outlet obstruction. 2. Post void volume did not change significantly from the prevoid volume. 3. Prostate is heterogeneous and enlarged encroaching into the bladder. More f ocal area of increased echogenicity within the bladder is nonvascular. This is a new finding as compared to the recent CT. This may be related to a small intr aluminal hematoma if there is any history of hematuria.
== END 2024-05-03 13:19 | disposition home or self-care (01) ==
LOC: RAD 13:19
PROVIDERS: PCP Nurse Practitioner Family; Visit Provider Nurse Practitioner Family
DX: N32.89 Other specified disorders of bladder (principal); N40.0 Benign prostatic hyperplasia without lower urinary tract symptoms
CPT/HCPCS: 76857

== ENCOUNTER 2024-07-03 10:42 | Outpatient (CLI) | payer MEDICARE, OTHER, SELFPAY ==
[2024-07-03 11:15] LABS: Blood Urea Nitrogen 17 mg/dL (8-23)
[2024-07-03] MEDS: iohexol 350 mg/mL 500 mL Btl (per mL) IV (11:22)
--- NOTE | 2024-07-03 13:15 | CT_ITS ---
WS: [id number] CT chest w con* [id number] HISTORY: R91.1 - Solitary pulmonary nodule TECHNIQUE: Axial imaging performed through the thorax. Coronal and sagittal reformats are submitted. All CT scans at [facility] use at least one of these dose optimization techniques: automated exposure control; mA and/or kV adjustment per patient size (includes targeted exams where dose is matched to clinical indication); or iterative reconstruction. CONTRAST: Omnipaque 350; 100 mL IV. DLP: 483.58 mGy.cm COMPARISON: 12/13/2023,, 05/25/2018 Lungs and central airway: Slight elevation of the LEFT hemidiaphragm. Reidentified stable 4 mm nodule which is partially calcified in the RIGHT upper lobe. No change since 12/13/2023. Mild pleural thickening along the fissure along the lung LEFT mid lung. No additional mass or pulmonary nodules. Pleura: Normal. No pleural effusion. Heart and pericardium: Normal size heart with no pericardial effusion. Mediastinum and zoie: No mediastinum or hilar adenopathy. Vessels: Mild atherosclerosis. Normal size pulmonary artery. Chest wall and lower neck: Small axillary lymph nodes. Upper abdomen: Small hiatal hernia. Cholelithiasis without evidence for acute cholecystitis. Visualized colon in the upper abdomen demonstrates moderate fecal retention. Reidentified is the well-circumscribed low-attenuation mass in the LEFT upper quadrant measuring 2.2 cm. Closely associated with the pancreas. No change since 2019. No adrenal mass. Osseous structures: Increase in thoracic kyphosis. CT/CT chest w con* [id number] IMPRESSION: 1. No interval change 4 mm partially calcified nodule RIGHT upper lobe. Consid er 12-month chest CT follow-up to document long-term stability. 2. Stable slight elevation LEFT hemidiaphragm. 3. Cholelithiasis without acute cholecystitis. 4. Stable well-circumscribed mass in the LEFT upper abdomen since 2019.
== END 2024-07-03 10:43 | disposition home or self-care (01) ==
LOC: RAD 10:46
PROVIDERS: PCP Nurse Practitioner Family; Visit Provider Nurse Practitioner Family
DX: R91.1 Solitary pulmonary nodule (principal); R91.8 Other nonspecific abnormal finding of lung field; K80.20 Calculus of gallbladder without cholecystitis without obstruction; R93.5 Abnormal findings on diagnostic imaging of other abdominal regions, including retroperitoneum; J92.9 Pleural plaque without asbestos; I70.0 Atherosclerosis of aorta; R59.0 Localized enlarged lymph nodes; K44.9 Diaphragmatic hernia without obstruction or gangrene; R93.89 Abnormal findings on diagnostic imaging of other specified body structures; M40.294 Other kyphosis, thoracic region
CPT/HCPCS: 71260; 82565; 84520

== ENCOUNTER → 2024-07-20 13:56 | Outpatient (BNVA) | payer MEDICARE, OTHER, SELFPAY | PROVIDERS: PCP Nurse Practitioner Family; Visit Provider Nurse Practitioner Family | DX: R05.9 Cough, unspecified (principal) | CPT/HCPCS: 87400 ==

== ENCOUNTER → 2024-09-12 11:30 | Outpatient (BNVA) | payer MEDICARE, OTHER, SELFPAY | PROVIDERS: PCP Nurse Practitioner Family; Visit Provider Nurse Practitioner Family | DX: R35.0 Frequency of micturition (principal); N39.0 Urinary tract infection, site not specified | CPT/HCPCS: 81000; 87086 ==

== ENCOUNTER 2024-09-24 21:56 | Emergency (ER) | payer MEDICARE, OTHER, SELFPAY ==
[2024-09-24 21:59] VITALS: BP 103/64; PULSE 78; RESP 16; TEMP 36.6; O2SAT 95
[2024-09-24 22:50] VITALS: BP 111/70; PULSE 67; RESP 16; O2SAT 98
--- NOTE | 2024-09-24 23:01 | XRR_ITS ---
PROCEDURE INFORMATION: Exam: XR Chest Exam date and time: 09/24/2024 11:32 PM Age: 74 years old Clinical indication: Low grade fever TECHNIQUE: Imaging protocol: Radiologic exam of the chest. Views: 1 view. COMPARISON: CT chest w con* [id number] 07/03/2024 11:15 AM FINDINGS: Lungs: Bibasilar atelectasis. Emphysematous changes. Pleural spaces: Unremarkable. No pleural effusion. No pneumothorax. Heart/Mediastinum: Unremarkable. No cardiomegaly. Bones/joints: Unremarkable. Gastrointestinal tract: Probable colon and stomach beneath the diaphragms, consider correlation with the CT abdomen and pelvis if concern for free air in the abdomen exists. XR/XR chest 1V portable [id number] IMPRESSION: 1. Bibasilar atelectasis. 2. Emphysematous changes. 3. Probable colon and stomach beneath the diaphragms, consider correlation with the CT abdomen and pelvis if concern for free air in the abdomen exists.
--- NOTE | 2024-09-24 23:01 | W.ED.MALEGU ---
HPI - Male Genitourinary General: Chief complaint: Urogenital-Male Stated complaint: BLOOD IN URINE Time Seen by Provider: 09/24/24 22:50 History of Present Illness: Patient is a 74-year-old male with history of enlarged prostate who underwent urological procedure on August 20, 2024 (approximately 4 weeks ago) and currently has a suprapubic catheter in place. He presents with complaints of hematuria and fever. Today around 6 PM, he developed fever of 101?F after mowing lawn, accompanied by rigors affecting his hands, legs, and feet. Patient reports ongoing hand tremors for past 6 months, but today's episode was notably more severe. He took Tylenol for fever. The suprapubic catheter is managed with intermittent drainage, and he reports still being able to void through his urethra. He notes decreasing drainage amounts from the catheter over time. The catheter is due for replacement this Tuesday, at approximately 5 weeks post-placement. Patient has upcoming appointments scheduled with Urology on Tuesday and Neurology next Tuesday. Related Data Home Medications ?Medication ?Instructions ?Recorded ?Confirmed ascorbic acid (vitamin C) PO DAILY 06/20/19 09/12/24 glucosamine-chondroitin 250 mg-200 1 tab PO DAILY 06/20/19 09/12/24 mg tablet (Osteo Bi-Flex) flunisolide 25 mcg (0.025 %) nasal 2 spray intranasal .prn 01/29/20 09/12/24 spray Previous Rx's ?Medication ?Instructions ?Recorded methenamine hippurate 1 gram tablet 1 g PO BID #180 tabs 07/29/22 triamcinolone acetonide 0.5 % 1 applic topical TID #15 grams 10/13/22 topical cream fluconazole 100 mg tablet 100 mg PO DAILY 14 days #14 tabs 01/09/24 tamsulosin 0.4 mg capsule (Flomax) 0.4 mg PO DAILY #30 caps 01/14/24 apixaban 5 mg tablet (Eliquis) 5 mg PO BID 90 days #180 tabs 01/30/24 clotrimazole-betamethasone 1 1 applic topical BID 2 weeks #45 01/30/24 %-0.05 % topical cream grams famotidine 20 mg tablet (Pepcid) 20 mg PO DAILY #90 tabs 01/30/24 flecainide 150 mg tablet 150 mg PO Q12H 90 days #180 tabs 01/30/24 metoprolol tartrate 50 mg tablet 50 mg PO BID 90 days #180 tabs 01/30/24 tramadol 50 mg tablet 50 mg PO TID PRN pain 10 days #30 01/30/24 tabs prednisone 20 mg tablet 20 mg PO BID 5 days #10 tabs 07/20/24 ciprofloxacin HCl 500 mg tablet 500 mg PO BID #10 tabs 09/12/24 (Cipro) ciprofloxacin HCl 500 mg tablet 500 mg PO BID #14 tabs 09/25/24 (Cipro) Allergies Allergy/AdvReac Type Severity Reaction Status Date / Time No Known Allergies Allergy Verified 09/24/24 22:09 [facility] PFSH: Medical History DDD (degenerative disc disease), lumbosacral Osteoarthritis of hip Atrial fibrillation Thrombocytopenia Right renal atrophy History of kidney stones Neurogenic bladder Benign prostatic hyperplasia with lower urinary tract symptoms Arthritis Surgical History History of knee replacement procedure of right knee History of foot surgery History of cataract extraction Bilateral H/O vasectomy S/P hernia repair Left S/P knee replacement Left Family History Mother Lung disease Brother Cancer Father , at age 70 No problems noted. Social History Smoking and tobacco/nicotine status: never used tobacco/nicotine Second hand smoke exposure: No Alcohol intake: never Substance/Drug Use: never Caregiver/support person: No Lives independently: Yes Household members: spouse Housing: Manufactured/Mobile home Marital status: Number of children: 2 Highest education level completed: High School Graduate service: Yes (28 years) status: Retired branch: [employer] Assignments: Outside [place] and Deployed Countries/Dates of Deployments: [employer] [facility] number of deployments: 8 Current occupational status: retired Do you think of yourself as: Straight/Heterosexual Current gender identity: Male Physical Exam Const: COMMON NORMALS: no acute distress, average body habitus, alert and well nourished GENERAL APPEARANCE: cooperative ORIENTATION/CONSCIOUSNESS: Yes awake HENMT: COMMON NORMALS: normocephalic and atraumatic HEAD & SCALP: normocephalic and atraumatic Eye: COMMON NORMALS: conjunctivae normal CONJUNCTIVA: Yes conjunctivae normal Neck/C-Spine: GENERAL: Yes normal visual inspection Resp: COMMON NORMALS: normal respiratory effort, No retractions and No use of accessory muscles Cardio: COMMON NORMALS: regular rhythm and Peripheral pulses 2+ throughout RHYTHM: regular rhythm PERIPHERAL PULSES: Peripheral pulses 2+ throughout GI: COMMON NORMALS: Soft to palpation and non-tender PALPATION: Yes Soft to palpation Extremity: COMMON NORMALS: full ROM Neuro: COMMON NORMALS: no focal motor deficits SENSORIUM/ORIENTATION: Yes alert Skin: COMMON NORMALS: no rashes or lesions noted GENERAL SKIN EXAM: no rashes or lesions noted Course Vital Signs: Vital signs: Vital Signs Temperature 98 F 09/24/24 21:59 Pulse Rate 78 09/25/24 01:00 Respiratory Rate 16 09/25/24 01:00 Blood Pressure 131/70 09/25/24 01:00 Pulse Oximetry 98 09/25/24 01:00 Oxygen Delivery Me thod Room Air 09/25/24 01:00 MDM - Male Medical Decision Making Review of Systems: Constitutional: Positive for fever (101?F) and chills Respiratory: Denies cough, congestion. Reports dry throat Cardiovascular: Denies chest pain or shortness of breath Gastrointestinal: Denies abdominal pain Genitourinary: Positive for hematuria Musculoskeletal: Reports bilateral lower extremity swelling Neurological: Reports worsened tremors Medications: 1. Eliquis (apixaban) 2. Tylenol (acetaminophen) - taken today for fever Allergies: No known allergies documented Past Medical History: 1. Benign prostatic hyperplasia 2. Tremor - 6 month history 3. Condition requiring anticoagulation (on Eliquis) Past Surgical History: 1. Urological procedure with suprapubic catheter placement - August 20, 2024 2. Other surgical history: Unknown Social History: Limited information available. Patient appears to be active enough to do yard work (mowing lawn) Family History: No family history documented Vital Signs: Temperature: Previously 101?F at home, current temperature not documented Blood Pressure: 120/70 mmHg Heart Rate: 80 bpm Oxygen Saturation: Within normal limits (exact value not specified) Physical Exam: General: Well-appearing, no acute distress HEENT: Throat appears dry Cardiovascular: Regular heart rate and rhythm, equal pulses in all four extremities Respiratory: Lungs clear to auscultation Extremities: 2+ bilateral pedal edema Skin: No rash or lesions noted : Suprapubic catheter in place, no collection bag attached Lab Results: Pending basic fever workup Imaging and Other Relevant Results: Chest X-ray ordered Medical Decision Making: Summary Statement: 74-year-old male with suprapubic catheter presents with new onset fever, rigors, and ongoing hematuria, concerning for urinary tract infection or catheter-associated infection. Problem List: 1. Fever 2. Hematuria 3. Suprapubic catheter 4. Tremors 5. Lower extremity edema Differential Diagnosis: 1. Catheter-associated urinary tract infection 2. Prostatitis 3. Pyelonephritis 4. Urosepsis 5. Secondary infection from recent urological procedure ED Course: Patient to receive basic fever workup including blood work, urinalysis (preferably from urethral void), and chest x-ray. IV fluids to be administered to assist with urination for specimen collection. Assessment and Plan: 1. Fever with Suspected Urinary Source: - Obtain urinalysis and urine culture, preferably from urethral void - Blood cultures and basic labs including CBC, CMP - Chest x-ray to rule out pulmonary source - Consider empiric antibiotics based on urinalysis results 2. Suprapubic Catheter Management: - Continue current management until scheduled urology appointment on Tuesday - Document decreased drainage amounts Urinalysis has ultimately been sent to the lab after quite a bit of time. Labs show mild leukocytosis with a white blood cell count of 15,000. Labs are otherwise stable. Chest x-ray without any obvious pneumonia or consolidation. He does have some bibasilar atelectasis. There are some emphysematous changes. He does have what appears to be Chaladitti's sign with some colon or stomach noted underneath the diaphragms I do not feel he has free air. I will go ahead and prescribe the patient ciprofloxacin for presumed urinary tract infection. Urine culture will be sent. Patient is scheduled to follow-up with his urologist and I have encouraged him to keep that appointment. Return precautions were provided. Lab Data 09/24/24 23:00 09/24/24 23:00 Radiology Impressions Chest X-Ray 09/24/24 23:01 IMPRESSION: 1. Bibasilar atelectasis. 2. Emphysematous changes. 3. Probable colon and stomach beneath the diaphragms, consider correlation with the CT abdomen and pelvis if concern for free air in the abdomen exists. Laboratory Results WBC 15.64 10^3/uL (3.29-11.43) H 09/24/24 23:00 RBC 3.95 10^6/uL (3.85-5.65) 09/24/24 23:00 Hgb 12.90 g/dL (11.27-16.99) 09/24/24 23:00 Hct 39.2 % (37-53) 09/24/24 23:00 MCV 99.2 fl (82-101) 09/24/24 23:00 MCH 32.7 pg (27-33) 09/24/24 23:00 MCHC 32.9 g/dL (30-55) 09/24/24 23:00 RDW 14.3 % (12.1-15.1) 09/24/24 23:00 Plt Count 208 10^3/cmm (157-399) 09/24/24 23:00 MPV 8.4 fL (7.4-10.4) 09/24/24 23:00 Neut % (Auto) 87.5 % 09/24/24 23:00 Lymph % (Auto) 5.5 % 09/24/24 23:00 [place] % (Auto) 6.1 % 09/24/24 23:00 Eos % (Auto) 0.2 % 09/24/24 23:00 Baso % (Auto) 0.3 % 09/24/24 23:00 Neut # (Auto) 13.70 10^3/uL (1.8-7.7) H 09/24/24 23:00 Lymph # (Auto) 0.9 10^3/uL (0.8-4.8) 09/24/24 23:00 [place] # (Auto) 1.0 10^3/uL (0.2-0.9) H 09/24/24 23:00 Eos # (Auto) 0.0 10^3/uL (0.0-0.8) 09/24/24 23:00 Baso # (Auto) 0.0 10^3/uL (0.0-0.1) 09/24/24 23:00 Nucleated RBC % (auto) 0 % 09/24/24 23:00 Nucleated RBCs # 0.0 /100WBC 09/24/24 23:00 Sodium 138 mmol/L (136-145) 09/24/24 23:00 Potassium 4.3 mmol/L (3.5-5.1) 09/24/24 23:00 Chloride 102 mmol/L (98-107) 09/24/24 23:00 Carbon Dioxide 25 mmol/L (22-29) 09/24/24 23:00 Anion Gap 15.3 (5-19) 09/24/24 23:00 BUN 18 mg/dL (8-23) 09/24/24 23:00 Creatinine 1.2 mg/dL (0.7-1.2) 09/24/24 23:00 GFR Calculation Not Reportable 09/24/24 23:00 Glucose 117 mg/dL (65-115) H 09/24/24 23:00 Calculated Osmolality 289 mOsm/kg (285-295) 09/24/24 23:00 Lactic Acid 1.2 mmol/L (0.5-2.2) 09/24/24 23:00 Calcium 9.5 mg/dL (8.5-10.5) 09/24/24 23:00 Total Bilirubin 0.8 mg/dL (0.15-1.2) 09/24/24 23:00 AST 20 U/L (0-40) 09/24/24 23:00 ALT 13 U/L (0-41) 09/24/24 23:00 Alkaline Phosphatase 59 U/L (40-130) 09/24/24 23:00 Total Protein 6.7 g/dL (6.6-8.7) 09/24/24 23:00 Albumin 3.7 g/dL (3.5-5.2) 09/24/24 23:00 Globulin 3.0 g/dL (1.3-4.6) 09/24/24 23:00 Urine Color Red (Yellow) A 09/25/24 02:13 Urine Appearance Turbid (CLEAR) A 09/25/24 02:13 Urine pH Not Reportable 09/25/24 02:13 Ur Specific [place] 1.022 (1.005-1.030) 09/25/24 02:13 Urine Protein 2+ (Negative) A 09/25/24 02:13 Urine Glucose (UA) Negative (Normal) 09/25/24 02:13 Urine Ketones Negative (Negative) 09/25/24 02:13 Urine Blood 2+ (Negative) A 09/25/24 02:13 Urine Nitrate Positive (Negative) A 09/25/24 02:13 Urine Bilirubin 2+ (Negative) H 09/25/24 02:13 Urine Urobilinogen 0.2 mg/dL (Negative) 09/25/24 02:13 Ur Leukocyte Esterase 3+ (Negative) A 09/25/24 02:13 Urine RBC Too numerous to cnt /hpf (0-2) H 09/25/24 02:13 Urine WBC >100 /hpf (0-5) H 09/25/24 02:13 Ur Squamous Epith Cells 0-5 /hpf (0-5) 09/25/24 02:13 Amorphous Sediment Not Reportable 09/25/24 02:13 Urine Bacteria 2+ /hpf (NONE) H 09/25/24 02:13 Hyaline Casts 3.56 /lpf 09/25/24 02:13 Influenza A (PCR) Negative (Negative) 09/24/24 23:14 Influenza Type B (PCR) Negative (Negative) 09/24/24 23:14 RSV (PCR) Negative (Negative) 09/24/24 23:14 SARS-CoV-2 (PCR) Negative (Negative) 09/24/24 23:14 All radiology interpretation(s) finalized by discharge Discharge Plan Discharge Patient Disposition: Home Clinical Impression: Urinary tract infection Condition: Stable Prescriptions: New ciprofloxacin HCl [Cipro] 500 mg tablet 500 mg PO BID Qty: 14 0RF No Action ascorbic acid (vitamin C) PO DAILY glucosamine-chondroitin [Osteo Bi-Flex] 250-200 mg tablet 1 tab PO DAILY flunisolide 25 mcg (0.025 %) spray,non-aerosol 2 spray INTRANASAL .prn fluconazole 100 mg tablet 100 mg PO DAILY 14 Days Qty: 14 0RF Eliquis 5 mg tablet 5 mg PO BID 90 Days Qty: 180 3RF clotrimazole-betamethasone 1-0.05 % cream 1 applic TOPICAL BID 14 Days Qty: 45 5RF famotidine [Pepcid] 20 mg tablet 20 mg PO DAILY Qty: 90 3RF flecainide 150 mg tablet 150 mg PO Q12H 90 Days Qty: 180 3RF metoprolol tartrate 50 mg tablet 50 mg PO BID 90 Days Qty: 180 3RF tramadol 50 mg tablet 50 mg PO TID PRN (Reason: pain) 10 Days Qty: 30 0RF prednisone 20 mg tablet 20 mg PO BID 5 Days Qty: 10 0RF ciprofloxacin HCl [Cipro] 500 mg tablet 500 mg PO BID Qty: 10 0RF methenamine hippurate 1 gram tablet 1 g PO BID Qty: 180 3RF Rx Instructions: With 1 g vitamin C each dose triamcinolone acetonide 0.5 % cream 1 applic topical TID Qty: 15 1RF Flomax 0.4 mg capsule 0.4 mg PO DAILY Qty: 30 0RF Discharge Orders: Discharge ED (Routine); Ordered 09/25/24 Ordered By: Lorenzo Forde Referrals: Jordyn Demarco FNP [Primary Care Provider, [facility]] Discharge Diet: Usual diet Discharge Activity: Resume usual activity Patient Instructions: Catheter-associated Urinary Tract Infection (ED), Opioid Safety, Pain Management Activity Restrictions/Additional Instructions: Take all medication as directed. Follow-up with urology as scheduled. Return to the ER for any new or worsening symptoms or any other concerns. Print Language: Georgian Coding Level of Care Code ED Manager [employer] for Violette Rodriguez
[2024-09-24 23:14] LABS: Basophils % 0.3 %; Eosinophils % 0.2 %; Hematocrit 39.2 % (37-53); Lymphocytes # 0.9 10^3/uL (0.8-4.8); Lymphocytes % 5.5 %; Mean Corpuscular HGB Conc 32.9 g/dL (30-55); Mean Corpuscular Hemoglobin 32.7 pg (27-33); Mean Corpuscular Volume 99.2 fl (82-101); Mean Platelet Volume 8.4 fL (7.4-10.4); Monocytes % 6.1 %; Neutrophils % 87.5 %; Nucleated Red Blood Cells % 0 %; Platelet Count 208 10^3/cmm (157-399); Red Blood Count 3.95 10^6/uL (3.85-5.65); Red Cell Distribution Width 14.3 % (12.1-15.1); White Blood Count 15.64 10^3/uL (3.29-11.43)
[2024-09-24] MEDS: cefTRIAXone 1,000 mg SDV 1000 MG IVP (23:20)
[2024-09-24] MEDS: sodium chloride 0.9% 1,000 ML 999 ML IV (23:20)
[2024-09-24 23:30] LABS: Alanine Aminotransferase 13 U/L (0-41); Albumin Level 3.7 g/dL (3.5-5.2); Alkaline Phosphatase 59 U/L (40-130); Anion Gap 15.3 (5-19); Aspartate Amino Transferase 20 U/L (0-40); Blood Urea Nitrogen 18 mg/dL (8-23); Calcium 9.5 mg/dL (8.5-10.5); Carbon Dioxide 25 mmol/L (22-29); Chloride 102 mmol/L (98-107); Creatinine Clr Calc Pharmacy 61.1777; Glucose 117 mg/dL (65-115); Lactic Sepsis W/Reflex 1.2 mmol/L (0.5-2.2); Osmolality Calculated 289 mOsm/kg (285-295); Potassium 4.3 mmol/L (3.5-5.1); Sodium 138 mmol/L (136-145); Total Bilirubin 0.8 mg/dL (0.15-1.2); Total Protein 6.7 g/dL (6.6-8.7)
[2024-09-24 23:59] VITALS: BP 136/64; PULSE 88; RESP 16; O2SAT 98
[2024-09-25 00:10] LABS: Influenza A NEGATIVE (Negative); Influenza B NEGATIVE (Negative); Respiratory Syncytial Virus Ce NEGATIVE (Negative); SARS-CoV-2 PCR NEGATIVE (Negative)
[2024-09-25 01:00] VITALS: BP 131/70; PULSE 78; RESP 16; O2SAT 98
[2024-09-25 02:28] LABS: Bacteria Urine 2+ /hpf; Bilirubin Urine 2+ (Negative); Blood Urine 2+ (Negative); Glucose Urine UA Negative (Normal); Hyaline Casts Urine 3.56 /lpf; Ketones Urine Negative (Negative); Leukocyte Esterase Urine 3+ (Negative); Nitrate Urine Positive (Negative); Protein Urine 2+ (Negative); Specific Gravity, Urine 1.022 (1.005-1.030); Squamous Epithelial Cell Urine 0-5 /hpf (0-5); Urine Appearance Turbid (CLEAR); Urobilinogen Urine 0.2 mg/dL (Negative); WBC Urine >100 /hpf (0-5)
[2024-09-25 02:37] LABS: Add Urine Microscopic? YES; RBC Urine TOO NUMEROUS TO CNT /hpf (0-2); Urine Color Red (Yellow)
[2024-09-25 02:38] LABS: UA Slide Review UA Slide Review Perf
[2024-09-25 02:39] LABS: Add Urine Culture? Yes
[2024-09-25 03:05] VITALS: BP 106/57; PULSE 80; RESP 16; O2SAT 94
[2024-09-26 01:20] LABS: Acinetobacter baumannii Not Detected (NOT DETECT); Bacteroides fragilis Not Detected (NOT DETECT); CTX-M Not Detected (NOT DETECT); Citrobacter Not Detected (NOT DETECT); Cronobacter sakazakii Not Detected (NOT DETECT); Enterobacter cloacae complex Not Detected (NOT DETECT); Enterobacter non cloacae Not Detected (NOT DETECT); Fusobacterium necrophorum Not Detected (NOT DETECT); Fusobacterium nucleatum Not Detected (NOT DETECT); Haemophilus influenzae Not Detected (NOT DETECT); Klebsiella pneumoniae group Not Detected (NOT DETECT); Morganella morganii Not Detected (NOT DETECT); Neisseria meningitidis Not Detected (NOT DETECT); Pan Candida Not Detected (NOT DETECT); Pan Gram-Positive Not Detected (NOT DETECT); Proteus mirabilis Not Detected (NOT DETECT); Pseudomonas aeruginosa Not Detected (NOT DETECT); Salmonella Not Detected (NOT DETECT); Serratia Not Detected (NOT DETECT); Serratia marcescens Not Detected (NOT DETECT); Stenotrophomonas maltophilia Detected (NOT DETECT)
--- NOTE | 2024-09-26 01:31 | PC.NURSE ---
lab called critical blood culture results. chart was printed and given to ED physician
--- NOTE | 2024-09-26 08:21 | PC.NURSE ---
nurse called pt to come back d/t blood cultures per dr. wright
== END 2024-09-25 03:06 | disposition home or self-care (01) ==
PROVIDERS: Emergency Provider Student in an Organized Health Care Education/Training Program; PCP Nurse Practitioner Family
DX: N39.0 Urinary tract infection, site not specified (principal); Z11.52 Encounter for screening for COVID-19; Z79.01 Long term (current) use of anticoagulants
CPT/HCPCS: 36415; 71045; 80053; 81001; 83605; 85025; 87040; 87077; 87086; 87150; 87186; 87637; 96361; 96374; 99284; J0696; J7030

== ENCOUNTER → 2024-10-01 10:21 | Outpatient (BNVA) | payer MEDICARE, OTHER, SELFPAY | PROVIDERS: PCP Nurse Practitioner Family; Referring Provider Nurse Practitioner Family; Visit Provider Psychiatry & Neurology Neurology | DX: G25.0 Essential tremor (principal); G25.3 Myoclonus | CPT/HCPCS: 99203 ==

== ENCOUNTER 2024-10-03 12:24 | Outpatient (CLI) | payer MEDICARE, OTHER, SELFPAY ==
--- NOTE | 2024-10-03 13:00 | MR_ITS ---
WS: [id number] MRI HEAD WITHOUT CONTRAST TECHNIQUE: Sagittal T1, T2 axial, T2 axial FLAIR, axial and coronal T1 images, axial susceptibility weighted imaging, axial diffusion weighted images, and coronal T2 images were obtained. CLINICAL INFORMATION: R25.1 - Tremor, unspecified FINDINGS: No evidence of restricted diffusion to suggest acute ischemia. Ventricular system and basilar cisterns are patent. Mild small vessel changes. Moderate parenchymal volume loss worse in the frontal lobes. Moderate atrophy temporal lobes and hippocampal formations. Normal posterior fossa. Normal vascular flow voids at the skull base. No extra-axial fluid collections. Small retention cysts or polyps in the maxillary sinuses. Mild mucosal thickening in the mastoid air cells. Normal posterior nasopharynx. No hemosiderin on the susceptibility weighted images. Normal optic chiasm and pituitary infundibulum. MR/MR head wo con* [id number] IMPRESSION: 1. No evidence of restricted diffusion to suggest acute ischemia. 2. Mild small vessel changes with moderate parenchymal volume loss worse in th e frontal lobes. 3. Moderate symmetric atrophy temporal lobes and hippocampal formations. 4. No hemosiderin on susceptibility-weighted images.
== END 2024-10-03 12:25 | disposition home or self-care (01) ==
PROVIDERS: PCP Nurse Practitioner Family; Visit Provider Psychiatry & Neurology Neurology
DX: R25.1 Tremor, unspecified (principal); R93.0 Abnormal findings on diagnostic imaging of skull and head, not elsewhere classified; G31.89 Other specified degenerative diseases of nervous system; H74.8X9 Other specified disorders of middle ear and mastoid, unspecified ear
CPT/HCPCS: 70551

== ENCOUNTER 2024-10-12 12:38 | Outpatient (CLI) | payer MEDICARE, OTHER, SELFPAY ==
--- NOTE | 2024-10-12 12:45 | USCV_ITS ---
Mehul Davalos Age: 74 Gender: M : 1950 Exam Date: 10/12/2024 13:01 Ordering Phys: Maximilian He MD Technologist: R Exam Location: [facility] [place] Indication: tremor Risk Factors: Previous Vascular Surgery: Right Brachial BP: / Left Brachial BP: / Right Left Velocity (cm/s) Spectral Plaque Velocity (cm/s) Spectral Plaque Syst/Diast Broadening Syst/Diast Broadening 34.90/ 9.20 Prox CCA 63.30 / 14.10 64.70/ 16.40 Mid CCA 74.80 / 16.30 49.30/ 13.30 Distal CCA 62.00 / 16.70 38.00/ 11.20 Prox ICA 61.50 / 18.90 48.30/ 17.40 Mid ICA 59.10 / 21.00 39.40/ 11.10 Distal ICA 55.50 / 19.30 68.90 ECA 79.40 1.00 ICA/CCA 1.00 Antegrade Vertebral Antegrade 15.10/ 5.20 cm/s 28.60/ 10.20 cm/s Tri Subclavian Tri 49.20 63.30 CONCLUSIONS Right ICA stenosis <50%. Mild atheromatous plaque right carotid bulb/ICA. Left ICA stenosis <50%. Mild atheromatous plaque left carotid bulb/ICA. Normal antegrade Doppler flow noted in the right vertebral artery. Normal antegrade Doppler flow noted in the left vertebral artery. Danny Scanlon MD (Electronically Signed) Final Date: 12 Oct 2024 14:07 S
== END 2024-10-12 12:39 | disposition home or self-care (01) ==
PROVIDERS: PCP Nurse Practitioner Family; Visit Provider Psychiatry & Neurology Neurology
DX: R25.1 Tremor, unspecified (principal); I65.23 Occlusion and stenosis of bilateral carotid arteries
CPT/HCPCS: 93880

== ENCOUNTER → 2024-11-27 12:34 | Outpatient (BNVA) | payer MEDICARE, OTHER, SELFPAY | PROVIDERS: PCP Nurse Practitioner Family; Visit Provider Nurse Practitioner Family | DX: I48.91 Unspecified atrial fibrillation (principal); G25.0 Essential tremor | CPT/HCPCS: 80053; 80061; 82607; 82746; 83735; 84443; 85025; G0103 ==

== ENCOUNTER 2024-12-07 10:16 | Outpatient (CLI) | payer MEDICARE, OTHER, SELFPAY ==
--- NOTE | 2024-12-07 10:30 | US_ITS ---
WS: [id number] THYROID ULTRASOUND REASON FOR EXAM: E04.1 - Nontoxic single thyroid nodule TECHNIQUE: Grayscale and Doppler ultrasound examination of the thyroid gland. FINDINGS: RIGHT: Right thyroid gland measures 3.4 cm x 1.1 cm x 1.5 cm. Right thyroid volume equals 2.5 ccm3. Homogeneous echotexture with no focal lesion. LEFT: Left thyroid gland measures 3.7 cm x 1.1 cm x 1.5 cm. Left thyroid volume equals 3.0 ccm3. Homogeneous echotexture with no focal lesion. Thyroid isthmus: 0.2 mm. US/US thyroid [id number] IMPRESSION: Normal thyroid gland without focal lesion.
== END 2024-12-07 10:17 | disposition home or self-care (01) ==
LOC: RAD 10:17
PROVIDERS: PCP Nurse Practitioner Family; Visit Provider Nurse Practitioner Family
DX: E04.1 Nontoxic single thyroid nodule (principal)
CPT/HCPCS: 76536

== ENCOUNTER → 2025-01-16 11:12 | Outpatient (BNVA) | payer MEDICARE, OTHER, SELFPAY | PROVIDERS: PCP Nurse Practitioner Family; Visit Provider Nurse Practitioner Family | DX: I44.2 Atrioventricular block, complete (principal) | CPT/HCPCS: 80048; 83735 ==

== ENCOUNTER → 2025-02-27 08:41 | Outpatient (BNVA) | payer MEDICARE, OTHER, SELFPAY | PROVIDERS: PCP Nurse Practitioner Family; Visit Provider Podiatrist Foot & Ankle Surgery | DX: M25.572 Pain in left ankle and joints of left foot (principal); L60.3 Nail dystrophy; M76.72 Peroneal tendinitis, left leg; M20.41 Other hammer toe(s) (acquired), right foot; M20.42 Other hammer toe(s) (acquired), left foot; M25.372 Other instability, left ankle | CPT/HCPCS: 73610; 99204 ==

== ENCOUNTER → 2025-03-28 09:23 | Outpatient (BNVA) | payer MEDICARE, OTHER, SELFPAY | PROVIDERS: PCP Nurse Practitioner Family; Visit Provider Nurse Practitioner Family | DX: I48.91 Unspecified atrial fibrillation (principal); R07.89 Other chest pain | CPT/HCPCS: 80053; 80061; 83735; 84443; 85025 ==